=== PATIENT | male | born 1970 | race Caucasian/White ===

== ENCOUNTER 2022-09-06 07:59 | Outpatient (CLI) | payer OTHER, SELFPAY ==
[2022-09-06 14:13] LABS: Chloride* 103 mmol/L (96-114); Potassium* 4.3 mmol/L (3.6-5.1); Sodium* 139 mmol/L (135-149)
[2022-09-06 14:16] LABS: Blood Urea Nitrogen* 19 mg/dL (7-30); Calcium* 9.8 mg/dL (8.4-10.6); Carbon Dioxide* 28 mmol/L (20-32); Creatinine* 0.9 mg/dL (0.5-1.5); Estimated Glomerular Filt Rate 102 ml/min; Glucose* 148 mg/dL (60-115)
== END 2022-09-06 08:00 | disposition home or self-care (01) ==
PROVIDERS: PCP Family Medicine; Visit Provider Family Medicine
DX: E11.9 Type 2 diabetes mellitus without complications (principal)
CPT/HCPCS: 80048

== ENCOUNTER 2023-05-17 08:53 | Outpatient (CLI) | payer OTHER, SELFPAY | END 2023-05-17 08:54 | disposition home or self-care (01) | PROVIDERS: PCP Family Medicine; Visit Provider Family Medicine | DX: Z00.00 Encounter for general adult medical examination without abnormal findings (principal); Z13.6 Encounter for screening for cardiovascular disorders; Z12.5 Encounter for screening for malignant neoplasm of prostate | CPT/HCPCS: 80061; 84153 ==

== ENCOUNTER 2023-10-24 08:42 | Outpatient (CLI) | payer OTHER, SELFPAY | END 2023-10-24 08:43 | disposition home or self-care (01) | LOC: LKVREF 08:46 | PROVIDERS: PCP Family Medicine; Visit Provider Family Medicine | DX: E11.9 Type 2 diabetes mellitus without complications (principal); R11.0 Nausea | CPT/HCPCS: 80053 ==

== ENCOUNTER 2023-10-25 07:23 | Outpatient (CLI) | payer OTHER, SELFPAY | END 2023-10-25 07:24 | disposition home or self-care (01) | PROVIDERS: PCP Family Medicine; Visit Provider Family Medicine | DX: Z13.1 Encounter for screening for diabetes mellitus (principal) | CPT/HCPCS: 84681 ==

== ENCOUNTER 2024-07-17 08:13 | Outpatient (CLI) | payer OTHER, SELFPAY | END 2024-07-17 08:14 | disposition home or self-care (01) | PROVIDERS: PCP Family Medicine; Visit Provider Family Medicine | DX: Z00.00 Encounter for general adult medical examination without abnormal findings (principal); E78.5 Hyperlipidemia, unspecified; I10 Essential (primary) hypertension; E11.9 Type 2 diabetes mellitus without complications; E66.01 Morbid (severe) obesity due to excess calories; R80.9 Proteinuria, unspecified | CPT/HCPCS: 80048; 80061 ==

== ENCOUNTER 2024-12-26 09:19 | Outpatient (CLI) | payer OTHER, SELFPAY | END 2024-12-26 09:20 | disposition home or self-care (01) | LOC: LKVREF 09:21 | PROVIDERS: PCP Family Medicine; Visit Provider Family Medicine | DX: Z12.5 Encounter for screening for malignant neoplasm of prostate (principal) | CPT/HCPCS: G0103 ==

== ENCOUNTER 2025-06-18 08:22 | Outpatient (CLI) | payer OTHER, SELFPAY | END 2025-06-18 08:23 | disposition home or self-care (01) | PROVIDERS: PCP Family Medicine; Visit Provider Family Medicine | DX: I10 Essential (primary) hypertension (principal); E78.5 Hyperlipidemia, unspecified | CPT/HCPCS: 80048; 80061 ==